=== PATIENT | female | born 1970 | race Asian ===

== ENCOUNTER 2024-11-13 13:23 | Outpatient (REF) | payer MEDICAID, SELFPAY ==
[2024-11-13 16:07] LABS: MANUAL DIFF FLAG NO
[2024-11-13 16:42] LABS: Basophils Absolute Auto 0.1 X10*3/uL (0.0-0.2); Basophils Percent Auto 0.5 % (0-2); Eosinophils Percent Auto 0.4 % (0-4); Hematocrit 42.7 % (37.0-47.0); Hemoglobin 14.5 g/dl (12.0-16.0); Imm Gran Abs Auto 0.03 X10*3/uL (0.00-0.03); Imm Gran Pct Auto 0.3 % (0.0-0.4); Lymphocytes Absolute Auto 3.7 X10*3/uL (1.2-4.9); Lymphocytes Percent Auto 37.3 % (20-40); Mean Corpuscular Hemoglobin 31.7 pg (27.0-33.0); Mean Corpuscular Volume 93.4 fL (80.0-98.0); Mean Platelet Volume 9.1 fL (9.4-12.3); Monocytes Absolute Auto 0.4 X10*3/uL (0.1-1.2); Monocytes Percent Auto 4.1 % (2-11); Neutrophils Absolute Auto 5.6 x10*3/uL (2.0-8.3); Neutrophils Percent Auto 57.4 % (45-73); Platelet Count 387 X10*3/uL (160-400); Red Blood Count 4.57 X10*6/uL (4.20-5.50); Red Cell Distribution Width 12.6 % (11.0-16.0); White Blood Count 9.8 X10*3/uL (4.8-10.8)
[2024-11-13 16:47] LABS: Anion Gap 12 (12-20); Blood Urea Nitrogen 11 mg/dL (9-16); Calcium 9.6 mg/dL (8.4-10.2); Carbon Dioxide 25 mmol/L (22-29); Chloride 107 mmol/L (96-108); Cholesterol 210 mg/dL (<200); Estimated Glomerular Filt Rate > 60; Glucose Random 89 mg/dL (60-115); HDL Cholesterol 67 mg/dL (>40); LDL Cholesterol Calculated 129 mg/dL (<100); Potassium 3.8 mmol/L (3.3-5.1); Sodium 140 mmol/L (135-145); Triglycerides 73 mg/dL (<150)
--- OUTSIDE RECORDS SUMMARY | 2024-11-13 16:55 | XMS_ITS | Encounter Summary ---
Author Organization [email or web address] Address [address] [facility] [address] [place] [address] Care Team Providers Care Informatics Manager Name Role Phone Unavailable Primary Care Provider Unavailabl e Encounter Details Date Type Department Care Team (Latest Contact Info) Description 10/23/2024 Travel Social History Tobacco Use Types Packs/Day Years Used Date Smoking Tobacco: Never Assessed Housing Stability Answer Date Recorded What is your housing situation today? I have jin segundo 10/16/[address] you li ve. Do you have problems with any of the following? None of the above 10/16/2024 Food Insecurity Answer Date Recorded Within the past 12 months, y ou worried that your food would run out before you got money to buy more: Never True 10/16/2024 Within the past 12 months,th e food you bought just didn't last and you didn't have enough money to get more: Never True 12/2024 Transportation Answer Date Recorded In the past 12 months, has l ack of transportation kept you from medical appts, meetings, work or from getting things needed for daily living? No 10/16/2024 Utilities Answer Date Recorded In the past 12 months, has t he electric, gas, oil or water company threatened to shut off services in your home? No 10/16/2024 Internet Access Answer Date Recorded Internet Access Q1 Yes 10/16/2024 Internet Access Q2 Not on file 10/16/2024 Comments Unknown Sex and Gender Information Value Date Recorded Sex Assigned at Female 08/03/2024 11:02 AM EST Legal Sex Female 1:45 PM EST Gender Identity Female 08/03/2024 11:02 AM EST Sexual Orientation Straight 08/03/2024 11 :02 AM EST documented as of this encounter Plan of Treatment Not on file documented as of this encounter Visit Diagnoses Not on filedocumented in this encounter
--- OUTSIDE RECORDS SUMMARY | 2024-11-13 16:55 | XMS_ITS | Encounter Summary ---
Author Organization [employer] Address [address] [facility] [address] [place] [address] Care Team Providers Care Waste Specialist Name Role Phone ShantradhasairaJaspalKenzie [employer]ER Primary Care Provider [phone] Encounter Details Date Type Department Care Team (Late st Contact Info) Description 10/26/2024 2:15 PM EST Office Visit [facility] [address] [place] [address] Kenzie Ding FNP [address] [place] [address] Well adult health check (Primary Dx); Radha-menopausal; Dietary counseling; Exercise counseling Social History Tobacco Use Types Packs/Day Years Used Date Smoking Tobacco: Never Smokeless Tobacco: Never Tobacco Cessation:Counseling Given: Not Answered Depression Answer Date Recorded Patient Health Questionnaire-9 Score 10 10/26/2024 Patient Health Questionnaire-9 Score 10 10/26/2024 Last PHQ-9: Questionnaire Data Not on file 0 10/26/2024 Housing Stability Answer Date Recorded What is [...] off services in your home? No 10/16/2024 Depression Answer Date Recorded Patient Health Questionnaire-2 Score 2 10/26/2024 Internet Access Answer Date Recorded Internet Access Q1 Yes 10/16/2024 Internet Access Q2 Not on file 10/16/2024 Comments Unknown Sex and Gender Information Value Date Recorded Sex Assigned at Female 08/03/2024 11:02 AM EST Legal Sex Female 1:45 PM EST Gender Identity Female 08/03/2024 11:02 AM EST Sexual Orientation Straight 08/03/2024 11 :02 AM EST documented as of this encounter Last Filed Vital Signs Vital Sign Reading Time Taken Comments Blood Pressure 122/96 10/26/2024 2:06 PM EST Pulse 64 10/26/2024 2:06 PM EST Temperature 37.1 ??C (98.8 ??F) 10/26/2024 2:06 PM ES T Respiratory Rate 20 10/26/2024 2:06 PM EST Oxygen Saturation - - Inhaled Oxygen Concentration - - Weight 84 kg (185 lb 2 oz) 10/26/2024 2:06 PM ES T Height 168.4 cm (5' 6.29 ) 10/26/2024 2:06 PM ES T Body Mass Index 29.62 10/26/2024 2:06 PM EST documented in this encounter Progress Notes * MISTI Beal - 10/26/2024 2:15 PM EST Subjective: Lauren Martinez is a 54 y.o. female who presents to the office for a new patient visit. Previous PCP [place]. Interim History: 08/03/2024 seen in [facility] for refill of Loestrin-Fe . Reported she has been taking them for 9 months for perimenopausal symptoms by [facility]. Reports frequent spotting every 2 weeks. Previous work ups have been negative. Patient is to transfer health information Current concerns: Itchy nipple using clobetasol cream. Request for hormone for menopausal Patient Active Problem List Diagnosis Radha-menopausal Exercise counseling Well adult health check Dietary counseling History reviewed. No pertinent surgical history. Family History Problem Relation Name Age of Onset Hypertension Mother Kidney cancer Father Hypertension Sister Heart attack Brother qt 49 yrs from heart attack Social History Living situation: Lives with boyfriend in an apartment Safety:No fire arms in the home. 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 Reports home and environment safe Employment/Education: unemployed Diet/exercise: Eats variety of food including fruits and vegetables. Routine exercise Substance use: Denies use of tobacco, alcohol or drugs Sexual preference Male Sexual activity: Yes, same partner x 4 yrs Dental: [facility] Last menstrual period: LMP 09/24/2024. Radha pelon pausal. Patient reports been on Lo Loestin pills for radha menopausal x 1 yr Children: None. [id number] Mental health: Denies SI, harming self or others Allergies Allergen Reactions Hazelnut (Filbert) Angioedema Penicillin V Hives Current Outpatient Medications Medication Sig Dispense Refill norethindrone-ethinyl estradiol-iron (Lo Loestrin Fe) 1 MG-10 MCG / 10 MCG tablet Take 1 tablet by mouth Once per day. 84 tablet 0 No current facility-administered medications for this visit. Health Maintenance Topic Date Due HIV Screening Never done Colorectal Cancer Screening Never done Alcohol/Substance Use Screening Never done Hepatitis C Screening Never done DTaP/Tdap/Td Vaccines (1 - Tdap) Never done Hepatitis B Vaccines (1 of 3 - 19+ 3-dose series) Never done Cervical Cancer Screening Never done Mammogram Never done Pneumococcal Vaccine: 50+ Years (1 of 1 - PCV) Never done Zoster Vaccines (1 of 2) Never done Depression Monitoring (PHQ-9) 04/25/2025 Depression Screening 10/26/2025 Tobacco Screening 10/26/2025 SDOH Screening 10/26/2025 RSV Patients and Patients Aged 60 years or older (1 - 1-dose 75+ series) 2046 Influenza Vaccine Completed COVID-19 Vaccine Completed RSV under 20 months Aged Out HIB Vaccines Aged Out IPV Vaccines Aged Out Hepatitis A Vaccines Aged Out Meningococcal Vaccine Aged Out Rotavirus Vaccines Aged Out HPV Vaccines Aged Out Review of Systems Constitutional: Negative for appetite change and fever. HENT: Negative for congestion, ear discharge, ear pain, rhinorrhea and sore throat. Eyes: Negative for discharge, redness and itching. Respiratory: Negative for cough, shortness of breath and wheezing. Cardiovascular: Negative for chest pain. Gastrointestinal: Negative for abdominal pain, blood in stool, constipation, diarrhea, nausea and vomiting. Endocrine: Negative for polydipsia and polyuria. Genitourinary: Negative for difficulty urinating, dyspareunia, hematuria and menstrual problem. Musculoskeletal: Negative for arthralgias. Skin: Negative for rash. Neurological: Negative for dizziness, weakness and headaches. Hematological: Does not bruise/bleed easily. Psychiatric/Behavioral: Negative for behavioral problems, sleep disturbance and suicidal ideas. Vitals: 10/26/24 1406 BP: (!) 122/96 BP Location: Right arm Patient Position: Sitting BP Cuff Size: Adult Pulse: 64 Resp: 20 Temp: 98.8 ??F (37.1 ??C) TempSrc: Oral Weight: 185 lb 2 oz (84 kg) Height: 5' 6.29 (1.684 m) Physical Exam Constitutional: Appearance: Normal appearance. HENT: Head: Normocephalic and atraumatic. Right Ear: Tympanic membrane, ear canal and external ear normal. Left Ear: Tympanic membrane, ear canal and external ear normal. Nose: Nose normal. No congestion. Mouth/Throat: Mouth: Mucous membranes are moist. Pharynx: Oropharynx is clear. Eyes: Extraocular Movements: Extraocular movements intact. Pupils: Pupils are equal, round, and reactive to light. Cardiovascular: Rate and Rhythm: Normal rate and regular rhythm. Pulses: Normal pulses. Heart sounds: Normal heart sounds. No murmur heard. Pulmonary: Effort: Pulmonary effort is normal. Breath sounds: Normal breath sounds. No wheezing. Chest: Chest wall: No tenderness. Abdominal: General: Abdomen is flat. Bowel sounds are normal. Palpations: Abdomen is soft. Tenderness: There is no guarding or rebound. Musculoskeletal: General: Normal range of motion. Cervical back: Normal range of motion. Right lower leg: No edema. Left lower leg: No edema. Skin: General: Skin is warm and dry. Capillary Refill: Capillary refill takes 2 to 3 seconds. Findings: No bruising. Neurological: General: No focal deficit present. Mental Status: She is alert and oriented to person, place, and time. Cranial Nerves: No cranial nerve deficit. Sensory: No sensory deficit. Psychiatric: Mood and Affect: Mood normal. Behavior: Behavior normal. Thought Content: Thought content normal. Judgment: Judgment normal. Problem List Items Addressed This Visit Well adult health check - Primary Well nourished, alert and cooperative , good historian, and answering questions appropriately. Denies significant past medical and surgical history. Reports having various symptoms of radha [place] was placed on Loestrin-Fe by [facility]. Reported she has been taking them for 9 months. Discussed with patient the need and importance of signing the form to obtain health information from previous provider. Patient requesting for hormone testing for the state of her perimenopause. Plan Blood work order to screen for anemia, electrolytes, elevated blood sugar and lipid Lab ordered evaluate thyroid function and menopausal state Ordered preventing screening for STIs Diet and exercise review Hep B lab work to determine presence of antigens or antibody Lifestyle and behavioral health assessment Patient due pneumococcal, Dtap, and shingles offered declined at this time Patient education on vaccination and importance getting annual vaccines Mammogram: Last manmogram 01/2024 reports was normal. Next pap smear 01/2029 Pap smear: Reports up to date and unremarkable Colonoscopy: 07/2023 reports normal. Next colonoscopy 07/2033 Follow up with lab results accordingly Relevant Orders CBC auto differential Lipid Panel, Standard Chlamydia/N. Gonorrhoeae RNA, TMA, Urogenitial Basic Metabolic Panel Hemoglobin A1c Radha-menopausal Patient concern about perimenopausal symptoms requesting for hormone level check. Currently on Loestrin-Fe prescribed by [facility]. Last refill in [facility] on 08/03/2024. Reports Itchy nippleas part of symptoms and using clobetasol cream with good effect. Denies discharge, mass, peeling skin, change of color or irritation. Patient teaching - itchy nipple can r/t ezema, contact dermatitisand others. Advised to report back if it gets worse . Plan on menopausal lab work Relevant Orders TSH W/Reflex to FT4 FSH Prolactin, Dilution Study Ferritin Dietary & Exercise counseling Eat 3 meals a day, especially breakfast Eat healthy and focus on healthyfood choices daily fruits, vegetables, grains, low fat milk, low carbohydrate and fat Maintain healthy weight as this will lower your risk for many health problems. Be physically active at least 45 minutes a day [facility] OPERATING ROOM ASSISTANT Attestation OPERATING ROOM ASSISTANT Resident Attestation: Patient was seen and evaluated by Kenzie CHAPPELL , in collaboration with Krysten CHAPPELL who hasreviewed my assessment and plan. I, Krysten CHAPPELL, have reviewed the resident's note and agree with the assessment & plan of care as documented above. documented in this encounter Plan of Treatment Pending Results Name Type Priority Associated Diagnoses Date /Time Lipid Panel, Standard Lab Routine Well adult health check 11/13/2024 1:32 PM EST Basic Metabolic Panel Lab Routine Well adult health check 11/13/2024 1:32 PM EST Scheduled Orders Name Type Priority Associated Diagnoses Orde r Schedule Chlamydia/N. Gonorrhoeae RNA, TMA, Urogenitial Microbiology Routine Well adult health check Ordered: 10/28/2024 TSH W/Reflex to FT4 Lab Routine Radha-menopausal Expected: 10/28/2024 (Approximate), Expires: 10/28/2025 FSH Lab Routine Radha-menopausal Expected: 10/28/2024, Expires: 10/28/2025 Prolactin, Dilution Study Lab Routine Radha-menopausal Expected: 10/28/2024 (Approximate), Expires: 10/28/2025 Hemoglobin A1c Lab Routine Well adult health check Expected: 11/01/2024 (Approximate), Expires: 10/26/2025 Ferritin Lab Routine Radha-menopausal Expected: 11/01/2024 (Approximate), Expires: 10/26/2025 Hepatitis A,B,C Profile Lab Routine Well adult health check Expected: 11/01/2024, Expires: 11/01/2025 documented as of this encounter Procedures Procedure Name Priority Date/Time Associated Diagnosis Comments CBC WITH AUTO DIFFERENTIAL Routine 11/13/2024 1:32 PM EST Well adult health check LIPID PANEL, STANDARD Routine 11/13/2024 1:32 PM EST Well adult health check BASIC METABOLIC PANEL Routine 11/13/2024 1:32 PM EST Well adult health check documented in this encounter Results * (ABNORMAL) CBC auto differential (11/13/2024 1:32 PM EST) White Blood Count 9.8 4.8 - 10.8 X10*3/uL [facility] Red Blood Count 4.57 4.20 - 5.50 X10*6/uL [facility] Hemoglobin 14.5 12.0 - 16.0 g/dl [facility] Hematocrit 42.7 37.0 - 47.0 % [facility] Mean Corpuscular Volume 93.4 80.0 - 98.0 fL [facility] Mean Corpuscular Hemoglobin 31.7 27.0 - 33.0 pg [facility] Mean Corpuscular HGB Conc 34.0 31.0 - 35.0 g/dl [facility] Red Cell Distribution Width 12.6 11.0 - 16.0 % [facility] Platelet Count 387 160 - 400 X10*3/uL [facility] Mean Platelet Volume 9.1(L) 9.4 - 12.3 fL [facility] Neutrophils Percent Auto 57.4 45 - 73 % [facility] Imm Gran Pct Auto 0.3 0.0 - 0.4 % [facility] Lymphocytes Percent Auto 37.3 20 - 40 % [facility] Monocytes Percent Auto 4.1 2 - 11 % [facility] Eosinophils Percent Auto 0.4 0 - 4 % [facility] Basophils Percent Auto 0.5 0 - 2 % [facility] NRBC Pct Auto 0.0 0.0 - 0.2 /100WBC [facility] Neutrophils Absolute Auto 5.6 2.0 - 8.3 x10*3/uL [facility] Imm Gran Abs Auto 0.03 0.00 - 0.03 X10*3/uL [facility] Lymphocytes Absolute Auto 3.7 1.2 - 4.9 X10*3/uL [facility] Monocytes Absolute Auto 0.4 0.1 - 1.2 X10*3/uL [facility] Eosinophils Absolute Auto 0.0 0.0 - 0.4 X10*3/uL [facility] Basophils Absolute Auto 0.1 0.0 - 0.2 X10*3/uL [facility] NRBC Abs Auto 0.000 0.0 - 0.012 X10*3/uL [facility] Blood Venous blood specimen / Unknown 11/13/2024 1:32 PM EST 11/13/2024 4:05 PM EST Kenzie CHAPPELL LAB BLOOD ORDERABLES Final Res ult [facility] [address] [place] [phone] [phone] documented in this encounter Visit Diagnoses Diagnosis Well adult health check- Primary Unspecified general medical examination Radha-menopausal Symptomatic menopausal or female climacteric states Dietary counseling Dietary surveillance and counseling Exercise counseling documented in this encounter Additional Health Concerns Assessment Noted Time PHQ-9 Depression Total Score: 10 025 2:23 PM EST documented as of this encounter Care Teams Waste Specialist Relationship Specialty Start Date End Date Kenzie Ding FNP [address] [place] [phone] PCP - General Family Medicine 10/26/24 documented as of this encounter
--- OUTSIDE RECORDS SUMMARY | 2024-11-13 16:55 | XMS_ITS | Clinical Summary ---
Author Organization [employer] Address [address] [place] [address] 7 [place] [address] Care Team Providers Care Community Health Consultant Name Role Phone Kenzie Ding Primary Care Provider [phone] Allergies Active Allergy Reactions Criticality Noted Date Comments Hazelnut (Filbert) Angioedema 10/26/2024 Penicillin V Hives 08/03/2024 Medications norethindrone-et hinyl estradiol-iron (Lo Loestrin Fe) 1 MG-10 MCG / 10 MCG tabletIndication s:Perimenopausal symptoms Take 1 tablet by mouth Once per day. 84 tablet 08/03/2024 Active Active Problems Problem Noted Date Diagnosed Date Exercise counseling 11/01/2024 Well adult health check 11/01/2024 Dietary counseling 11/01/2024 Radha-menopausal 05/13/2022 Overview (10/23/2024): Various ailments and symptoms Encounters Date Type Department Care Team Description 10/26/2024 2:15 PM EST Office Visit [facility] [address] [place] [phone] Kenzie Ding FNP Well adult health check (Primary Dx); Radha-menopausal; Dietary counseling; Exercise counseling 10/23/[address] [address] Sosa Bean [place] Chart Prep 10/23/2024 Travel 10/16/2024 Patient Outreach [facility] [address] [place] [phone] Kenzie Ding FNP Pre-visit Planning (SDOH screening negative and Tobacco screening negative) from Last 3 Months Immunizations Name Administration Dates Next Due Influenza, seasonal, injectable, preservative fr ee 08/03/2024 Pfizer Covid-19 Vaccine 12+ 08/03/2024 Family History Medical History Relation Name Comments Heart attack Brother qt 49 yrs from heart attack Kidney cancer Father Hypertension Mother Hypertension Sister Relation Name Status Comments Brother Father Mother Sister Social History Tobacco Use Types Packs/Day Years [...] Orientation Straight 08/03/2024 11 :02 AM EST Last Filed Vital Signs Vital Sign Reading Time Taken Comments Blood Pressure 122/96 10/26/2024 2:06 PM EST Pulse 64 10/26/2024 2:06 PM EST Temperature 37.1 ??C (98.8 ??F) 10/26/2024 2:06 PM ES T Respiratory Rate 20 10/26/2024 2:06 PM EST Oxygen Saturation 99% 08/03/2024 11:14 AM EST Inhaled Oxygen Concentration - - Weight 84 kg (185 lb 2 oz) 10/26/2024 2:06 PM ES T Height 168.4 cm (5' 6.29 ) 10/26/2024 2:06 PM ES T Body Mass Index 29.62 10/26/2024 2:06 PM EST Plan of Treatment Health Maintenance Due Date Last Done Comments CT Colonography 1971 Colonoscopy 1971 Colorectal Cancer Screening 1971 FIT DNA/Cologuard 1971 FIT 1971 FOBT 1971 HIV Screening 1971 Sigmoidoscopy 1971 Alcohol/Substance Use Screening 1983 Hepatitis C Screening 1989 DTaP/Tdap/Td Vaccines (1 - Tdap) 1990 Hepatitis B Vaccines (1 of 3 - 19+ 3-dose series) 1990 Pap Smear 02/29/1992 Cervical Cancer Screening 2001 HPV/Cotest 2001 Mammogram 2011 Pneumococcal Vaccine: 50+ Years (1 of 1 - PCV) 2021 Zoster Vaccines (1 of 2) 2021 Depression Monitoring (PHQ-9) 04/25/2025, 10/26/2024 Depression Screening 10/26/2025 10/26/2024, 10/26/2024 SDOH Screening 10/26/2025 10/26/2024 Tobacco Screening 10/26/2025 10/26/2024 RSV Patients and Patients Aged 60 years or older (1 - 1-dose 75+ series) 2046 COVID-19 Vaccine Completed 08/03/2024 Influenza Vaccine Completed 08/03/2024 HIB Vaccines Aged Out No longer eligi ble based on patient's age to complete this topic HPV Vaccines Aged Out No longer eligi ble based on patient's age to complete this topic Hepatitis A Vaccines Aged Out No long er eligible based on patient's age to complete this topic IPV Vaccines Aged Out No longer eligi ble based on patient's age to complete this topic Meningococcal Vaccine Aged Out No radha otto eligible based on patient's age to complete this topic RSV under 20 months Aged Out No longe r eligible based on patient's age to complete this topic Rotavirus Vaccines Aged Out No longer eligible based on patient's age to complete this topic Procedures Procedure Name Priority Date/Time Associated Diagnosis Comments BASIC METABOLIC PANEL Routine 11/13/2024 1:32 PM EST Well adult health check LIPID PANEL, STANDARD Routine 11/13/2024 1:32 PM EST Well adult health check CBC WITH AUTO DIFFERENTIAL Routine 11/13/2024 1:32 PM EST Well adult health check from Last 3 Months Results * (ABNORMAL) CBC auto differential (11/13/2024 1:32 PM EST) White Blood Count 9.8 4.8 - 10.8 X10*3/uL [facility] Red Blood Count 4.57 4.20 - 5.50 X10*6/uL [facility] Hemoglobin 14.5 12.0 - 16.0 g/dl [facility] Hematocrit 42.7 37.0 - 47.0 % [facility] Mean Corpuscular Volume 93.4 80.0 - 98.0 fL [facility] Mean Corpuscular Hemoglobin 31.7 27.0 - 33.0 pg [facility] Mean Corpuscular HGB Conc 34.0 31.0 - 35.0 g/dl [facility] Red Cell Distribution Width 12.6 11.0 - 16.0 % [facility] Platelet Count 387 160 - 400 X10*3/uL [facility] Mean Platelet Volume 9.1(L) 9.4 - 12.3 fL [facility] Neutrophils Percent Auto 57.4 45 - 73 % [facility] Imm Gran Pct Auto 0.3 0.0 - 0.4 % [facility] Lymphocytes Percent Auto 37.3 20 - 40 % [facility] Monocytes Percent Auto 4.1 2 - 11 % [facility] Eosinophils Percent Auto 0.4 0 - 4 % [facility] Basophils Percent Auto 0.5 0 - 2 % [facility] NRBC Pct Auto 0.0 0.0 - 0.2 /100WBC [facility] Neutrophils Absolute Auto 5.6 2.0 - 8.3 x10*3/uL [facility] Imm Gran Abs Auto 0.03 0.00 - 0.03 X10*3/uL [facility] Lymphocytes Absolute Auto 3.7 1.2 - 4.9 X10*3/uL [facility] Monocytes Absolute Auto 0.4 0.1 - 1.2 X10*3/uL [facility] Eosinophils Absolute Auto 0.0 0.0 - 0.4 X10*3/uL [facility] Basophils Absolute Auto 0.1 0.0 - 0.2 X10*3/uL [facility] NRBC Abs Auto 0.000 0.0 - 0.012 X10*3/uL [facility] Blood Venous blood specimen / Unknown 11/13/2024 1:32 PM EST 11/13/2024 4:05 PM EST Kenzie CHAPPELL LAB BLOOD ORDERABLES Final Res ult [facility] [address] [place] [phone] [phone] from Last 3 Months Insurance [facility] C3 Care Teams Community Health Consultant Relationship Specialty Start Date End Date Kenzie Ding FNP [address] [place] [phone] PCP - General Family Medicine 10/26/24
--- OUTSIDE RECORDS SUMMARY | 2024-11-13 16:55 | XMS_ITS | Encounter Summary ---
Author Organization [employer] Address [address] [facility] [address]t [place] [address] Care Team Providers Care Manager Pet Name Role Phone Unavailable Primary Care Provider Unavailabl e Reason for Visit * Reason Onset Date Comments Chart Prep 10/23/2024 Encounter Details Date Type Department Care Team (Late st Contact Info) Description 10/23/2024 Telephone [facility] [address] [place] [address] Sosa Bean [place] Chart Prep Social History Tobacco Use Types Packs/Day Years [...] AM EST documented as of this encounter Miscellaneous Notes * Telephone Encounter - Sosa Bean MA - 10/23/2024 10:39 AM EST Chart Prep Labs: not applicable Images: not applicable Vaccines due: Tdap, Hep B, PCV20, Shingles Referrals: none Screenings: colonoscopy , mammogram , HIV, Hep C, Cervical cancer Overdue care gaps: Sbirt, SDOH, PHQ-9, Oral Health documented in this encounter Plan of Treatment Not on file documented as of this encounter Visit Diagnoses Not on filedocumented in this encounter
--- OUTSIDE RECORDS SUMMARY | 2024-11-13 16:55 | XMS_ITS | Encounter Summary ---
Author Organization [employer] Address [address] [facility] 7t [place] [address] Care Team Providers Care Digital Media Designer Name Role Phone Unavailable Primary Care Provider Unavailabl e Reason for Visit * Reason Comments Pre-visit Planning SDOH screening negat beau and Tobacco screening negative Encounter Details Date Type Department Care Team ([facility] st Contact Info) Description 10/16/2024 Patient Outreach [facility] [address] [place] [address] Kenzie Ding FNP [address] [place] [address] Pre-visit Planning (SDOH screening negative and Tobacco screening negative) Social History Tobacco Use Types Packs/Day Years [...] AM EST documented as of this encounter Progress Notes * Morris Barrow - 10/16/2024 2:24 PM EST CC Morris davison successful outbound call to patient for pre-visit planning. Patient name and confirmed. Patient confirms appt date and time, and has transportation arrangements. Biggest concern for appointment at this time is no concerns. Patient advised to bring to appointment a photo id and insurance card. Appropriate screenings completed in anticipation of appointment. documented in this encounter Plan of Treatment Not on file documented as of this encounter Visit Diagnoses Not on filedocumented in this encounter
[2024-11-13 16:56] LABS: Estimated Average Glucose 103 mg/dL; Hemoglobin A1C 128.5004 umol/L; Hemoglobin A1c % 5.2 % (<6.0); Total Hemoglobin (HGBA1C) 3852.6439 umol/L
[2024-11-13 17:01] LABS: Ferritin 75 ng/mL (10-250); TSH reflex Free T4 1.05 uIU/mL (0.32-4.0)
[2024-11-14 08:39] LABS: HBS Num1 0.31 mIU/mL (0-7.99); HBc Num1 0.06 S/CO (0.00-0.79); HBsAGNum1 0.28 S/CO (0.00-0.99); Hepatitis A Antibody IgM 0.14 Index (0-0.79); Hepatitis B Core Antibody Nonreactive (Nonreactive); Hepatitis B Surface Antigen Negative (Negative); ~HepC Num1 0.09 S/CO (0.00-0.79); ~Hepatitis A Antibody IgM Nonreactive (Nonreactive); ~Hepatitis B Surface Antibody NONREACTIVE (Nonreactive); ~Hepatitis C Antibody Nonreactive (Nonreactive)
[2024-11-14 12:30] LABS: CT PCR NOT DETECTED (Not Detect.); NG PCR NOT DETECTED (Not Detect.)
[2024-11-14 23:39] LABS: Follicle Stimulating Hormone 28.2 mIU/mL; Prolactin Undiluted 5.5 ng/mL
== END 2024-11-13 13:24 | disposition home or self-care (01) ==
LOC: HO.HHCL 13:23
PROVIDERS: Visit Provider Nurse Practitioner Family
DX: Z00.00 Encounter for general adult medical examination without abnormal findings (principal); N95.1 Menopausal and female climacteric states
CPT/HCPCS: 80048; 80061; 82728; 83001; 83036; 84146; 84443; 85025; 86704; 86706; 86709; 86803; 87340; 87491; 87591

== ENCOUNTER 2025-02-14 15:50 | Outpatient (REF) | payer MEDICAID, SELFPAY ==
--- NOTE | ~2025-02-14 | US_ITS ---
EXAMINATION: US PELVIS CLINICAL INFORMATION: Abnormal uterine bleeding COMPARISON: None available. TECHNIQUE: Ultrasound of the pelvis is performed using both transabdominal and transvaginal transducers along with Doppler. Transvaginal imaging is performed due to inadequate visualization transabdominally. FINDINGS: Uterus: The uterus is anteverted and measures 9.0 x 3.9 x 7.4 cm. There are circumscribed heterogeneous regions within the uterus. In the left body, there is a subserosal mass measuring 3.8 x 2.6 x 4.0 cm. The central fundus, there is a heterogeneous region measuring 1.7 x 1.6 x 1.8 cm involving the myometrium and subserosal. Heterogeneity in the right mid body myometrial measuring up to 2 cm is consistent with a fibroid or multiple small fibroids. Within the cervical canal, near junction with uterus, there is a 1.0 x 0.2 x 0.4 cm hyperechogenic area consistent with polyp. There is central blood flow on color Doppler. There is a small amount of fluid in the endocervical canal. There is trace free fluid. The double wall endometrial thickness is 4 mm. The uterus is smooth in contour and has normal myometrial echogenicity. No visible fibroid. Adnexa: Both ovaries are visualized. There is normal color flow to the adnexa. There is no ovarian torsion. Right ovary measures 1.2 x 0.5 x 1.0 cm. Left ovary measures 2.1 x 1.7 x 2.3 cm cm. There is a cyst or follicle that measures 17 mm long axis. US/US pelvic and transvaginal IMPRESSION: Endocervical canal polyp measuring 1.0 x 2.2 x 0.4 cm. Neoplasm not ruled out. Fibroid uterus. Electronically signed by: Quincy Vera MD 02/14/2025 04:45 PM EDT
--- OUTSIDE RECORDS SUMMARY | 2025-02-14 18:06 | XMS_ITS | Encounter Summary ---
Author Organization [employer] Address [address] [facility] 7t [place] [address] Care Team Providers Care Timber Feller Name Role Phone Kenzie Ding [facility] Primary Care Provider [phone] Reason for Visit * Reason Onset Date Comments Med Refill 12/03/2024 Encounter Details Date Type Department Care Team ([facility] st Contact Info) Description 12/03/2024 Refill [facility] [address] [place] [address] Jevon Esqueda MD [address] [place] [address] Perimenopausal symptoms Social History Tobacco Use Types Packs/Day Years Used Date Smoking Tobacco: Never Smokeless Tobacco: Never Depression Answer Date Recorded Patient Health Questionnaire-9 [...] t he electric, gas, oil or water [employer] threatened to shut off services in your [...] documented as of this encounter Visit Diagnoses Diagnosis Perimenopausal symptoms documented in this encounter Additional Health Concerns Assessment Noted Time PHQ-9 Depression Total Score: 10 025 2:23 PM EST documented as of this encounter Care Teams Timber Feller Relationship Specialty Start Date End Date Kenzie Ding FNP [address] [place] [address] PCP - General Family Medicine 10/26/24 documented as of this encounter
== END 2025-02-14 15:51 | disposition home or self-care (01) ==
LOC: HO.US 15:50
PROVIDERS: Visit Provider Advanced Practice Midwife
DX: N93.9 Abnormal uterine and vaginal bleeding, unspecified (principal)
CPT/HCPCS: 76830; 76856

== ENCOUNTER → 2025-02-14 15:52 | Outpatient (BNV) | payer MEDICAID, SELFPAY | PROVIDERS: Visit Provider Radiology Diagnostic Radiology | DX: N84.1 Polyp of cervix uteri (principal); D25.9 Leiomyoma of uterus, unspecified | CPT/HCPCS: 76830; 76856 ==

== ENCOUNTER 2025-06-10 08:27 | Outpatient (REF) | payer MEDICAID, SELFPAY | END 2025-06-10 08:28 | disposition home or self-care (01) | LOC: HO.LNP 08:27 | PROVIDERS: Visit Provider Obstetrics & Gynecology | DX: N95.0 Postmenopausal bleeding (principal); D25.9 Leiomyoma of uterus, unspecified; Z32.02 Encounter for pregnancy test, result negative | CPT/HCPCS: 81025; 87626; 88175; 99202 ==

== ENCOUNTER 2025-06-10 08:27 | Outpatient (AMB) | payer MEDICAID, SELFPAY ==
--- NOTE | 2025-06-10 08:37 | MHC.OFFVIS ---
Vital Signs 06/10/25 08:43 Height 5 ft 7 in Weight 180 lb BMI 28.2 BP 110/78 Intake Visit Reasons: AUB /External Referral Construction Assistant Required: No Information Interpreted: non-clinical & clinical Electric Meter Tester: Electric Meter Tester Present (Conchita LAZO) Accompanied by: Self / Same As Patient Allergies Penicillins Allergy (Intermediate, Verified 06/10/25 08:44) Rash Is last menstrual period known: Yes Last menstrual period: 05/15/25 Post menopausal: No Patient : No Do you need a note to return to daycare/school/sports/work: Yes (for surgery on tuesday) HPI Comments Details: Presenting referred from [facility] after 2 episodes of vaginal bleeding after 9 months of amenorrhea. 03/06 pelvic ultrasound showed the following: Uterus: The uterus is anteverted and measures 9.0 x 3.9 x 7.4 cm. There are circumscribed heterogeneous regions within the uterus. In the left body, there is a subserosal mass measuring 3.8 x 2.6 x 4.0 cm. The central fundus, there is a heterogeneous region measuring 1.7 x 1.6 x 1.8 cm involving the myometrium and subserosal. Heterogeneity in the right mid body myometrial measuring up to 2 cm is consistent with a fibroid or multiple small fibroids. Within the cervical canal, near junction with uterus, there is a 1.0 x 0.2 x 0.4 cm hyperechogenic area consistent with polyp. There is central blood flow on color Doppler. There is a small amount of fluid in the endocervical canal. There is trace free fluid. The double wall endometrial thickness is 4 mm. The uterus is smooth in contour and has normal myometrial echogenicity. No visible fibroid. Adnexa: Both ovaries are visualized. There is normal color flow to the adnexa. There is no ovarian torsion. Right ovary measures 1.2 x 0.5 x 1.0 cm. Left ovary measures 2.1 x 1.7 x 2.3 cm cm. There is a cyst or follicle that measures 17 mm long axis. 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 Patient Tobacco Use Status: Never used Tobacco Current occupational status: unemployed Gender identity: Female Female Reproductive History Menstrual Age of Menarche: 14 Duration of menses: 3-5 days Date of last menstrual period: 05/15/25 Total pregnancies: 2 Full term: 2 Review of Systems Card Reports as per HPI and Reports no additional complaints Resp Reports as per HPI and Reports no additional complaints GI Reports as per HPI and Reports no additional complaints Reports as per HPI Physical Exam Vital Signs: Last Vital Signs BP 110/78 06/10/25 08:43 BMI result Body Mass Index 28.2 Const General: cooperative, healthy appearing and comfortable Chest Chest palpation & inspection: normal inspection of the chest and normal palpation of entire chest wall Breast/axilla inspection: normal inspection of the breasts and normal inspection of the axillae Breast/axilla palpation: normal palpation of the breasts, normal palpation of the axillae and no axillary lymphadenopathy Resp Effort & Inspection: normal respiratory effort Auscultation: clear to auscultation bilaterally Percussion: percussion normal Cardio Palpation: normal PMI Rate: regular rate Rhythm: regular rhythm Heart sounds: no murmurs and no rubs Peripheral pulses: Peripheral pulses 2+ throughout GI Inspection: Yes normal to inspection Palpation (GI): Soft to palpation, nontender, no guarding, not rigid and No hepatosplenomegaly present Percussion: Yes normal to percussion Auscultation: normal bowel sounds Rectal Exam - Female: deferred Results AMB Test Urine AMB Test Urine Negative Last Edit by Conchita Francis CMA on 06/10/25 08:55 Results Reviewed Results Reviewed: Laboratory Last Values Tst Clinic Negative 06/10/25 08:54 Assessment & Plan Assessment & Plan (1) Postmenopausal bleeding: Comment: Endocervical polyp by ultrasound Code(s): N95.0 - Postmenopausal bleeding Category: Medical Plan: Co testing and screening mammogram done. Discussed with the patient the differential diagnosis of postmenopausal bleeding including but not limited to endometrial/endocervical hyperplasia and/or malignancy or polyp. In addition discussed with the patient the pelvic ultrasound findings, showing endocervical polyp. The negative predictive value, positive predictive value, Sensitivity, specificity of using ultrasound measurement of endometrial stripe to detecting endometrial pathology including hyperplasia , polyp or cancer were discussed with the patient. Recommended to the patient that the next step is hysteroscopy D&C possible polypectomy . Discussed with the patient the procedure , all benefits and risks including but not limited to inability to complete the procedure , insufficient endometrial tissue for a complete evaluation of the endometrial cavity , bleeding, infection, possible need for blood transfusion with all its risk ( HIV,syphilis, Hepatitis, anaphylaxis shock, others..), injury to bladder, rectum, possible need for laparoscopy/laparotomy or hysterectomy. The patient verbalized understanding and signed the consent. Instructions given the patient to stay NPO after midnight the day prior to the procedure and to take only the specific medication (s) discussed the morning of the surgical procedure and to schedule a 2 week postoperative appointment (2) Uterine myoma: Code(s): D25.9 - Leiomyoma of uterus, unspecified Category: Medical Plan: Discussed with the patient the findings on pelvic ultrasound & the risk of myosarcoma; in addition reviewed with the patient that malignancy and pre malignancy cannot be ruled out without hysterectomy for pathological evaluation ; furthermore, explained to the patient the limitation of pelvic ultrasound and endometrial biopsy in the setting. Discussed with the patient the options of treatment including expectant management versus hysterectomy; the pros and cons, risks benefits of each approach were discussed with the patient including the fact that in cases of myosarcoma, surgical treatment can lead to early diagnosis and positively affects the prognosis; after further discussion, the patient decided to proceed with expectant management. Will repeat pelvic ultrasound periodically. Instructions given to patient to call in case any of the following occurs: pressure symptoms, abnormal uterine bleeding, pelvic pain; and to schedule a six-months pelvic ultrasound (order placed) and a follow-up appointment . All questions answered, the patient verbalized understanding and agreed with the plan . Orders: Orders AMB HCG Urine Test Today Z32.02 - Encounter for test, result negative US pelvic and transvaginal 6 Months D25.9 - Leiomyoma of uterus, unspecified Pap Smear Today N95.0 - Postmenopausal bleeding HPV High risk Today N95.0 - Postmenopausal bleeding Coding Level of Care Code New Pt Level 3 (72416) Diagnoses Postmenopausal bleeding N95.0 Uterine myoma D25.9
[2025-06-10 08:43] VITALS: BP 110/78; BMI 28.2
--- OUTSIDE RECORDS SUMMARY | 2025-06-10 08:50 | XMS_ITS | Encounter Summary ---
Author Organization [employer] Address [address] [facility] 7t [place] [address] Care Team Providers Care Fish Icer Name Role Phone Kenzie Ding [facility] Primary Care Provider [phone] Reason for Visit * Reason Onset Date Comments Med Refill 12/03/2024 Encounter Details Date Type Department Care Team ([facility] st Contact Info) Description 12/03/2024 Refill [facility] [address] [place] [address] Jevon Esqueda MD [address] [place] [address] Perimenopausal symptoms Social History Tobacco Use Types [...] t he electric, gas, oil or water [employer] threatened to shut off services in your [...] documented as of this encounter Care Teams Fish Icer Relationship Specialty Start Date End Date Kenzie Ding FNP [address] [place] [phone] PCP - General Family Medicine 10/26/24 documented as of this encounter
--- OUTSIDE RECORDS SUMMARY | 2025-06-10 08:50 | XMS_ITS | Clinical Summary ---
Author Organization [employer] Address [address] [place] [address] 7t [place] [address] Care Team Providers Care International Travel Consultant Name Role Phone Kenzie Ding [facility] Primary Care Provider [phone] Allergies Active Allergy Reactions Criticality Noted Date Comments Hazelnut (Filbert) Angioedema 10/26/2024 Penicillin V Hives 08/03/2024 Medications norethindrone-e thinyl estradiol-iron (Lo Loestrin Fe) 1 MG-10 MCG / 10 MCG tabletIndicatio ns:Perimenopaus al symptoms Take 1 tablet by mouth Once per day. 90 tablet 3 5 01/03/20 26 Active triamcinolone (Kenalog) 0.1 % ointmentIndicat ions:Heat rash Apply topically 2 times daily. 30 g 5 Active diphenhydrAMINE -zinc acetate (Benadryl Extra Strength) creamIndication s:Heat rash Apply topically if needed in the morning, at noon, and at bedtime for itching. 35 g 5 04/29/20 26 Active predniSONE (Deltasone) 10 MG tabletIndicatio ns:Rash Take by oral route daily. 6 tabs (=60mg) on day 1-2; 5 tabs (=50mg) on day 3-4; 4 tabs (=40mg) on day 5-6; 3 tabs (=30mg) on day 7-8; 2 tabs (=20mg) on day 9-10; 1 tab on day 11-12; 1/2 tab on day 13-14 43 tablet 5 Active Active Problems Problem Noted Date Diagnosed Date Exercise counseling 11/01/2024 Well adult health check 11/01/2024 Dietary counseling 11/01/2024 Radha-menopausal 05/13/2022 Overview (10/23/2024): Various ailments and symptoms Encounters Date Type Department Care Team Description 05/09/2025 Telephone [facility] [address] [place] [address] Jevon Esqueda MD 05/09/2025 Telephone [facility] [address] [place] [address] Kenzie Ding FNP Call Back Request 05/04/2025 11:00 AM EDT [facility] [address] [address] Jevon Esqueda MD Rash (Primary Dx) 05/04/2025 Travel 05/02/2025 Telephone [facility] [address] [place] [address] Kenzie Ding FNP Nurse Triage 05/01/2025 Refill [facility] [address] [address] Candelario Pop CNP Heat rash 04/29/2025 3:20 PM EDT [facility] [address] [address] Krysten Gray NP Heat rash (Primary Dx) 04/29/2025 Travel from Last 3 Months Immunizations Immunization Administration Dates Next Due Influenza, seasonal, injectable, [...] Tobacco: Never Tobacco Cessation:Counseling Given: Not Answered Alcohol Use Standard Drinks/Week Comments Not Currently 0 (1 standard drink = 0.6 oz pur e alcohol) Depression Answer Date Recorded Patient Health Questionnaire-9 [...] Access Q2 Not on file 10/16/2024 Comments No Sex and Gender Information Value Date Recorded Sex Assigned at Female 08/03/2024 11:02 AM EST Legal Sex Female 1:45 PM EST Gender Identity Female 08/03/2024 11:02 AM EST Sexual Orientation Straight 08/03/2024 11 :02 AM EST Last Filed Vital Signs Vital Sign Reading Time Taken Comments Blood Pressure 130/82 05/04/2025 10:56 AM EDT Pulse 78 05/04/2025 10:56 AM EDT Temperature 36.4 C (97.5 F) 05/04/2025 10:56 AM EDT Respiratory Rate 18 05/04/2025 10:56 AM EDT Oxygen Saturation 100% 04/29/2025 2:20 PM EDT Inhaled Oxygen Concentration - - Weight 85.5 kg (188 lb 6.4 oz) 05/04/2025 10:56 AM EDT Height 170.2 cm (5' 7 ) 05/04/2025 10:56 AM EDT Body Mass Index 29.51 05/04/2025 10:56 AM EDT Plan of Treatment Health Maintenance Due Date Last Done Comments CT Colonography 1971 Colonoscopy 1971 Colorectal Cancer Screening 1971 FIT DNA/Cologuard 1971 FIT 1971 FOBT 1971 HIV Screening 1971 Sigmoidoscopy 1971 Alcohol/Substance Use Screening 1983 DTaP/Tdap/Td Vaccines (1 - Tdap) 1990 Hepatitis B Vaccines (1 of 3 - 19+ 3-dose series) 1990 Pneumococcal Vaccine: 50+ Years (1 of 1 - PCV) 2021 Zoster Vaccines (1 of 2) 2021 Depression Monitoring 04/25/2025 10/26/2024 , 10/26/2024 Influenza Vaccine (#1) 2025 08/03/2024 Disability Screening 10/23/2025 10/23/2024 Cervical Cancer Screening 10/25/2025 HPV/Cotest 10/25/2025 Pap Smear 10/25/2025 10/25/2022 SDOH Screening 10/26/2025 10/26/2024 Mammogram 01/16/2026 01/17/2024 Tobacco Screening 05/04/2026 05/04/2025 RSV Patients and Patients Aged 60 years or older (1 - 1-dose 75+ series) 2046 COVID-19 Vaccine Completed 08/03/2024 Hepatitis C Screening Completed 11/13/2024 HIB Vaccines Aged Out No longer eligi [...] patient's age to complete this topic Meningococcal B Vaccine Aged Out No l onger eligible based on patient's age to complete [...] Procedure Name Priority Date/Time Associated Diagnosis Comments HEPATITIS PANEL, GENERAL Routine 11/13/2024 1:32 PM EST Well adult health check PAP SMEAR Routine 10/25/2022 12:00 AM EST from Last 3 Months or Most Recently Relevant to Health Maintenance Results * Hepatitis A,B,C Profile (11/13/2024 1:32 PM EST) Hepatitis A IgM Nonreactive Nonreactive [facility] Comment:IgM antibodies to BREAUX V not detected; does not exclude earlyacute or recovered HAV infection. ~Hepatitis B Surface Antibody NONREACTIVE Nonreactive [facility] Comment:Nonreactive: < 8.00 mIU/mL Hepatitis B Core Antibody Nonreactive Nonreactive [facility] Hepatitis C Antibody Nonreactive Nonreactive [facility] Comment:Antibodies to HCV no t detected; does not exclude early acuteHCV infection. Hepatitis B Surface Ag Negative Negative [facility] Blood Venous blood specimen / Unknown 11/13/2024 1:32 PM EST 11/13/2024 4:05 PM EST Kenzie Ding OPERATOR SPECIALIST COMMUNICATIONS LAB BLOOD ORDERABLES Final Res ult Performing Organization Address [facility]/ZIP Co de Phone Number [facility] [address] [place] [phone] * (ABNORMAL) Pap Smear (10/25/2022 12:00 AM EST) Swab Historical Provider MD LAB CYTOLOGY ORDERABLES F inal Result Performing Organization Address City/[facility] Co de Phone Number EXTERNAL LAB from Last 3 Months or Most Recently Relevant to Health Maintenance [facility] Care Teams International Travel Consultant Relationship Specialty Start Date End Date Kenzie Ding FNP [address] [place] [phone] PCP - General Family Medicine 10/26/24
--- OUTSIDE RECORDS SUMMARY | 2025-06-10 08:50 | XMS_ITS | Encounter Summary ---
Author Organization [employer] Address [address] [facility] 7t [place] [address] Care Team Providers Care Inspector Salvage Name Role Phone Kenzie Ding [facility] Primary Care Provider [phone] Reason for Visit * Reason Onset Date Comments Med Refill 11/14/2024 Encounter Details Date Type Department Care Team ([facility] st Contact Info) Description 11/14/2024 Refill [facility] [address] [place] [address] Jevon Esqueda MD [address] [place] [address] Perimenopausal symptoms Social History Tobacco Use Types [...] t he electric, gas, oil or water [employer] threatened to shut off services in your [...] documented as of this encounter Care Teams Inspector Salvage Relationship Specialty Start Date End Date Kenzie Ding FNP [address] [place] [phone] PCP - General Family Medicine 10/26/24 documented as of this encounter
--- OUTSIDE RECORDS SUMMARY | 2025-06-10 08:50 | XMS_ITS | Encounter Summary ---
Author Organization [employer] Address [address] [facility] 7t [place] [address] Care Team Providers Care Server Service Assistant Name Role Phone Kenzie Ding [facility] Primary Care Provider [phone] Reason for Visit * Reason Onset Date Comments Med Refill 05/01/2025 Encounter Details Date Type Department Care Team (Late st Contact Info) Description 05/01/2025 Refill [facility] [address] [place] [address] Candelario Pop CNP [address] [place] [address] Heat rash Social History Tobacco Use Types Packs/Day Years Used Date Smoking Tobacco: Never Smokeless Tobacco: Never Alcohol Use Standard Drinks/Week Comments Not Currently [...] as of this encounter Visit Diagnoses Diagnosis Heat rash Prickly heat documented in this encounter Additional Health Concerns Assessment Noted Time PHQ-9 Depression Total Score: 10 025 2:23 PM EST documented as of this encounter Care Teams Server Service Assistant Relationship Specialty Start Date End Date Kenzie Ding FNP [address] [place] [phone] PCP - General Family Medicine 10/26/24 documented as of this encounter
--- OUTSIDE RECORDS SUMMARY | 2025-06-10 08:50 | XMS_ITS | Encounter Summary ---
Author Organization [employer] Address [address] [place] [address] 7 [place] [address] Care Team Providers Care Timber Treatment Plant Operator Name Role Phone Kenzie Ding SPEECH AND HEARING DIRECTOR Primary Care Provider [phone] Reason for Visit * Reason Onset Date Comments Med Refill 02/23/2025 Encounter Details Date Type Department Care Team ([facility] st Contact Info) Description 02/23/2025 Refill [facility] [address] [place] [address] Kenzie Ding FNP [address] [place] [address] Perimenopausal symptoms Social History Tobacco Use Types [...] as of this encounter Care Teams Timber Treatment Plant Operator Relationship Specialty Start Date End Date Kenzie Ding FNP [address] [place] [phone] PCP - General Family Medicine 10/26/24 documented as of this encounter
== END 2025-06-10 09:32 | disposition home or self-care (01) ==
LOC: HO.HWS 08:27
PROVIDERS: Visit Provider Obstetrics & Gynecology
DX: N95.0 Postmenopausal bleeding (principal); D25.9 Leiomyoma of uterus, unspecified; Z32.02 Encounter for pregnancy test, result negative
CPT/HCPCS: 99203

== ENCOUNTER 2025-07-12 05:57 | Day surgery (SDC) | payer MEDICAID, SELFPAY ==
--- NOTE | 2025-07-09 14:25 | HO.ANESPROP2 ---
Documented by User: Anne Marie Ramon NP 07/09/25 14:31 HPI - Anesthesia Eval Consult details Narrative: 55 yr old female for D&C Hysteroscopy,possible myomectomy,possible polypectomy PMFSH Active Problems Active Problems: All Active Problems (Updated 06/10/25 @ 08:59 by Kj Egan MD) Uterine myoma (Acute) Postmenopausal bleeding (Acute) Past Medical History Medical History Post-menopausal bleeding Family History Family History Mother Diabetes HTN (hypertension) Father Cancer of kidney Brother HTN (hypertension) Surgical History Surgical History History of surgical removal of ganglion cyst (~1984) Hx of colonoscopy Social History Social History Household Members: Significant Other Household Members Other:: partner Housing: Apartment Are you a primary pediatric acute care unit nurse to a significant other at home: No Do you presently have visiting nurse or other home services: No Alcohol intake: current Alcohol intake frequency: a few times a week 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 If so, by whom?: No Are you DNR?: No Advance Directives: No Advance Directives Information Provided: Yes Advance Directives on File: No Current occupational status: unemployed Gender identity: Female Meds Allergies Allergy/AdvReac Type Severity Reaction Status Date / Time Penicillins Allergy Intermediate Rash Verified 06/10/25 08:44 Home Medications ?Medication ?Instructions ?Recorded ?Confirmed ?Last Taken ?Type calcium carbonate 500 mg PO DAILY 06/10/25 07/09/25 Unknown History cholecalciferol (vitamin D3) 25 25 mcg PO DAILY 06/10/25 07/09/25 Unknown History mcg (1,000 unit) capsule norethindrone 1 mg-ethinyl 1 tab PO DAILY 07/10/25 07/10/25 Unknown History estradiol 10 mcg (24)-iron 10 mcg(2) tablet (Lo Loestrin Fe) Documented by User: Ayesha Negro MD 07/12/25 07:34 PMFSH Past Medical History Medical History Post-menopausal bleeding Family History Family History Mother Diabetes HTN (hypertension) Father Cancer of kidney Brother HTN (hypertension) Surgical History Surgical History History of surgical removal of ganglion cyst (~1984) Hx of colonoscopy History of Problems with Anesthesia: No Social History Social History Household Members: Significant Other Household Members Other:: partner Housing: Apartment Are you a primary pediatric acute care unit nurse to a significant other at home: No Do you presently have visiting nurse or other home services: No Alcohol intake: current Alcohol intake frequency: a few times a week 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 If so, by whom?: No Are you DNR?: No Advance Directives: No Advance Directives Information Provided: Yes Advance Directives on File: No Current occupational status: unemployed Gender identity: Female Meds Allergies Allergy/AdvReac Type Severity Reaction Status Date / Time Penicillins Allergy Intermediate Rash Verified 06/10/25 08:44 Home Medications ?Medication ?Instructions ?Recorded ?Confirmed ?Last Taken ?Type calcium carbonate 500 mg PO DAILY 06/10/25 07/09/25 Unknown History cholecalciferol (vitamin D3) 25 25 mcg PO DAILY 06/10/25 07/09/25 Unknown History mcg (1,000 unit) capsule norethindrone 1 mg-ethinyl 1 tab PO DAILY 07/10/25 07/10/25 Unknown History estradiol 10 mcg (24)-iron 10 mcg(2) tablet (Lo Loestrin Fe) Exam Airway Mallampati Class: II TM Dist: >3cm Neck ROM: Full Loose/Missing/Broken Teeth: No Heart: RRR Lungs: CTA Assessment and Plan Assessment Anesthesia Assessment: Anesthesia Plan Discussed and Chart Reviewed Final Anesthetic Review History of Problems with Anesthesia: No NPO: Yes ASA Class: I Final Preanesthetic Review: Meds/Allgs Chart Reviewed, Consent Obtained/Reviewed and Anes Risks/Benef Reviewed Patient Risk: Low Procedure Risk: Low Anesthetic Plan Anesthetic Plan: GA Disposition: Standard PACU
[2025-07-09 16:17] VITALS: BMI 28.2
[2025-07-10 11:08] VITALS: BMI 28.2
[2025-07-12 06:02] VITALS: BP 115/74; PULSE 75; RESP 20; TEMP 36.1; O2SAT 97
[2025-07-12 06:11] VITALS: BMI 28.9
[2025-07-12] MEDS: Lactated Ringers 1,000 ML 100 ML IVCONT (06:20)
--- NOTE | 2025-07-12 07:35 | MHC.SHP ---
Pre-Procedural Eval Section A - 24 Hr Update-Section A only Date of Service: 07/12/25 The patient is an INPATIENT: No Changes since office visit: No Cold of Flu in the past 2 weeks, No New Medical Problems, No Changes in Medication and No Patient answered all questions The patient has been examined within 24 hours of the surgical procedure. The History & Physical has been completed within 30 days and I have reviewed it.: Yes Section B - Complete if H&P > 30 days Chief Complaint: Postmenopausal bleeding Allergies: Allergies Allergy/AdvReac Type Severity Reaction Status Date / Time Penicillins Allergy Intermediate Rash Verified 06/10/25 08:44 Plan Diagnosis/Plan: Unchanged I have reviewed the history and physical and performed a pertinent physical examination on my patient. No changes have occurred unless specified. Time Spent With Patient Time: Total time managing care of this patient today ____ minutes.
[2025-07-12 08:12] VITALS: BP 101/61; PULSE 66; RESP 12; TEMP 36.1; O2SAT 97
--- NOTE | 2025-07-12 08:14 | PM.OP ---
Brief Operative Note Date of Service: 07/12/25 Pre-op diagnosis: Postmenopausal bleed, endocervical polyp by ultrasound Post-op diagnosis: same (Endocervical polyp) Procedure: Hysteroscopy D&C, Polypectomy Surgeon: Kj Egan MD Anesthesia: GLMA Was an Stevedore Dock used for this Procedure?: No Estimated blood loss (mL): 0 Pathology: other (Endometrial Scrapping. Polyp) Condition: stable Disposition: PACU
--- NOTE | 2025-07-12 08:15 | W.PM.OPN ---
Operative Note Operative Note Date of Service: 07/12/25 Narrative: Preop Diagnosis: Postmenopausal bleeding , endocervical polyp by US Operation: Diagnostic Hysteroscopy, Dilataion & Curettage and polypectomy Post Op Diagnosis: Endocervical Polyp QBL: Minimal Anesthesia: GLMA Surgeon: Kj Egan MD Plant Operator Helper: None Complication: None Pathology: Endometrial Scrapings, endocervix polyp Procedure: The patient was put in the dorsal lithotomy position, scrubbed, and draped in the usual manner. A sterile speculum was inserted in the patient's vagina. The anterior lip of the cervix was grasped with a single tooth tenaculum. The cervix was dilated up to 5 mm, then the scope was inserted in the patient's uterus. Inspection revealed endocervical polyp. The Myosure Reach device was used; it was introduced through the operative channel and polypectomy done with no complications. The scope was then taken out from the uterine cavity, sharp curettings was carried on with minimal to moderate amount of tissues retrieved. At the end of the procedure, all instruments were taken out of the patient uterine and vaginal cavity. The single tooth tenaculum was removed and homeostasis was assured using pressure,. The patient tolerated the procedure well and was transferred to the PACU in a stable condition.
[2025-07-12 08:17] VITALS: BP 101/63; PULSE 66; RESP 16; O2SAT 96
[2025-07-12 08:22] VITALS: BP 107/67; PULSE 62; RESP 16; O2SAT 96
[2025-07-12 08:27] VITALS: BP 118/73; PULSE 74; RESP 16; O2SAT 96
[2025-07-12 08:41] VITALS: BP 116/77; PULSE 60; RESP 16; TEMP 36.5; O2SAT 97
== END 2025-07-12 09:00 | disposition home or self-care (01) ==
PROVIDERS: PCP Nurse Practitioner Family; Visit Provider Obstetrics & Gynecology
PROC: 0UDB8ZZ Extraction of Endometrium, Via Natural or Artificial Opening Endoscopic (ICD-10-PCS; CPT 58558; principal; 2025-07-12 07:30)
DX: N95.0 Postmenopausal bleeding (principal); N84.1 Polyp of cervix uteri; D25.9 Leiomyoma of uterus, unspecified; Z88.0 Allergy status to penicillin; Z56.0 Unemployment, unspecified; Z79.899 Other long term (current) drug therapy
CPT/HCPCS: 58558; 88305; J0131; J1100; J1885; J2003; J2250; J2405; J2704; J3010

== ENCOUNTER → 2025-07-12 05:57 | Outpatient (BNV) | payer MEDICAID, SELFPAY | PROVIDERS: PCP Nurse Practitioner Family; Visit Provider Obstetrics & Gynecology | DX: N95.0 Postmenopausal bleeding (principal) | CPT/HCPCS: 58558 ==

== ENCOUNTER 2025-07-18 16:36 | Outpatient (REF) | payer MEDICAID, SELFPAY ==
--- OUTSIDE RECORDS SUMMARY | 2025-07-18 13:00 | XMS_ITS | Encounter Summary ---
Author Organization [employer] Address [address] h [address] [place] [id number] Care Team Providers Care Appeals Examiner Name Role Phone Kenzie Ding POLICY CHANGE CLERK Primary Care Provider [phone] Encounter Details Date Type Department Care Team (Late st Contact Info) Description 07/18/2025 1:00 PM EST Office Visit [facility] [address] [place], [place] [phone] Anahi Gupta DO [address] [place], [place] [phone] Acute UTI (Primary Dx) Social History Tobacco Use Types Packs/Day Years [...] Sign Reading Time Taken Comments Blood Pressure 112/78 07/18/2025 1:14 PM EST Pulse 84 07/18/2025 1:02 PM EST Temperature 36.7 C (98 F) 07/18/2025 1:02 PM EST Respiratory Rate 20 07/18/2025 1:02 PM EST Oxygen Saturation 97% 07/18/2025 1:02 PM EST Inhaled Oxygen Concentration - - Weight 84.4 kg (186 lb 2 oz) 07/18/2025 1:02 PM EST Height 172.7 cm (5' 8 ) 07/18/2025 1:02 PM EST Body Mass Index 28.3 07/18/2025 1:02 PM EST documented in this encounter Progress Notes * Anahi Gupta, - 07/18/2025 1:00 PM EST SUBJECTIVE Lauren Martinez is a 55 y.o. female who presents for Sick Visit. She presents to [place] today c/o UTI sx. She underwent hysteroscopy with D&C and polypectomy last Tuesday with Dr. Egan. She has f/u with [facility] next week. She says she woke up 2 nights ago with a sensation of needing to urinate, but she couldn't go. She says the following day she felt a little better but then started having urinary frequency and urgency. She says that she episode of incontinence this morning as she was rushing to get to the bathroom.She is having some pain at the end of urination. She says it is uncomfortable to urinate. She says there is a little bit of hematuria since she had the surgery. She doesn't have h/o UTIs. She denies any N/V. No fevers. No vaginal symptoms. History provided by: Patient chute man used: No UTI Severity: Moderate Onset quality: Sudden Duration: 2 days Timing: Constant Progression: Worsening Chronicity: New Associated symptoms: no abdominal pain, no chest pain, no cough, no diarrhea, no fever, no headaches, no nausea, no shortness of breath and no vomiting Review of Systems Constitutional: Negative for activity change, appetite change, chills, fever and unexpected weight change. Respiratory: Negative for cough and shortness of breath. Cardiovascular: Negative for chest pain, palpitations and leg swelling. Gastrointestinal: Negative for abdominal pain, diarrhea, nausea and vomiting. Genitourinary: Positive for decreased urine volume, difficulty urinating, dysuria, enuresis, frequency, hematuria and urgency. Negative for flank pain, menstrual problem and pelvic pain. Neurological: Negative for weakness and headaches. Patient Active Problem List Diagnosis Radha-menopausal Exercise counseling Well adult health check Dietary counseling Allergies Allergen Reactions Hazelnut (Filbert) Angioedema Penicillin V Hives OBJECTIVE Vitals: 07/18/25 1302 07/18/25 1314 BP: (!) 124/95 112/78 BP Location: Left arm Right arm Patient Position: Sitting Sitting BP Cuff Size: Adult Adult Pulse: 84 Resp: 20 Temp: 98 ??F (36.7 ??C) TempSrc: Oral SpO2: 97% Weight: 186 lb 2 oz (84.4 kg) Height: 5' 8 (1.727 m) Physical Exam Constitutional: General: She is not in acute distress. Appearance: Normal appearance. Cardiovascular: Rate and Rhythm: Normal rate and regular rhythm. Heart sounds: Normal heart sounds. No murmur heard. Pulmonary: Effort: Pulmonary effort is normal. Breath sounds: Normal breath sounds. No wheezing or rhonchi. Abdominal: General: Bowel sounds are normal. Palpations: Abdomen is soft. There is no mass. Tenderness: There is no abdominal tenderness. Neurological: General: No focal deficit present. Mental Status: She is alert and oriented to person, place, and time. Cranial Nerves: No cranial nerve deficit. Motor: No weakness. Gait: Gait normal. Psychiatric: Mood and Affect: Mood normal. Office Visit on 07/18/2025 Component Date Value Ref Range Status Color, UA 07/18/2025 Yellow Final Clarity, UA 07/18/2025 Clear Final Glucose, UA 07/18/2025 Negative Final Bilirubin, UA 07/18/2025 Negative Final Ketones, UA 07/18/2025 Negative Final Spec Grav, UA 07/18/2025 1.015 Final Blood, UA 07/18/2025 Positive (A) Negative, None Detected Final Moderate pH, UA 07/18/2025 6.0 Final Protein, UA 07/18/2025 Negative Final Urobilinogen, UA 07/18/2025 0.2 Final Leukocytes, UA 07/18/2025 Trace Negative, Rare, Trace Final small Nitrite, UA 07/18/2025 Negative Negative, None Detected Final QC Media Lot # 07/18/2025 [id number] Final Lot# Expiration Date 07/18/[id number] Final Assessment/Plan Diagnoses and all orders for this visit: Acute UTI -treat empirically with bactrim -send Ucx for sensitivities -advised contact [facility] if sx do not resolve, she agrees with plans --Follow-up with PCP as scheduled or sooner prn-- Current Outpatient Medications: diphenhydrAMINE-zinc acetate (Benadryl Extra Strength) cream, Apply topically if needed in the morning, at noon, and at bedtime for itching., Disp: 35 g, Rfl: 0 norethindrone-ethinyl estradiol-iron (Lo Loestrin Fe) 1 MG-10 MCG / 10 MCG tablet, Take 1 tablet bymouth Once per day., Disp: 90 tablet, Rfl: 3 predniSONE (Deltasone) 10 MG tablet, Take by oral route daily. 6 tabs (=60mg) on day 1-2; 5 tabs (=50mg) on day 3-4; 4 tabs (=40mg) on day 5-6; 3 tabs (=30mg) on day 7-8; 2 tabs (=20mg) on day 9-10; 1 tab on day 11-12; 1/2 tab on day 13-14, Disp: 43 tablet, Rfl: 0 sulfamethoxazole-trimethoprim (Bactrim DS) 800-160 MG tablet, Take 1 tablet by mouth 2 times daily for 3 days., Disp: 6 tablet, Rfl: 0 triamcinolone (Kenalog) 0.1 % ointment, Apply topically 2 times daily., Disp: 30 g, Rfl: 0 Scribe Attestation: Jacobo Peterson, am serving as a scribe to document services personally performed by Anahi Reinoso, based on the patient's response to questions by provider and provider's statements to me. 07/18/25 1:49 PM Physicians Attestation: Anahi Peterson DO, have reviewed the information by the scribe, Jacobo Oden, for accuracy and agree with its content. documented in this encounter Plan of Treatment Scheduled Orders Name Type Priority Associated Diagnoses Orde r Schedule Culture, Urine, Routine Microbiology Routine Acute UTI Expected: 07/18/2025 (Approximate), Expires: 07/18/2026 documented as of this encounter Procedures Procedure Name Priority Date/Time Associated Diagnosis Comments POCT URINALYSIS DIPSTICK Routine 07/18/2025 1:04 PM EST Acute UTI documented in this encounter Results * (ABNORMAL) POCT Urinalysis (07/18/2025 1:04 PM EST) Color, UA Yellow Clarity, UA Clear Glucose, UA Negative Bilirubin, UA Negative Ketones, UA Negative Spec Grav, UA 1.015 Blood, UA Positive(A) Negative, None Detected Comment:Moderate pH, UA 6.0 Protein, UA Negative Urobilinogen, UA 0.2 Leukocytes, UA Trace Negative, Rare, Trace Comment:small Nitrite, UA Negative Negative, None Detected QC Media Lot # [id number] Lot# Expiration Date ,[id number] Urine (Urine, Random) 07/18/2025 1:04 PM EST Anahi Gupta DO POINT OF CARE TEST ENTER/STEPHEN T ORDERABLES Final Result documented in this encounter Visit Diagnoses Diagnosis Acute UTI- Primary Urinary tract infection, site not specified documented in this encounter Additional Health Concerns Assessment Noted Time PHQ-9 Depression Total Score: 10 025 2:23 PM EST documented as of this encounter Care Teams Appeals Examiner Relationship Specialty Start Date End Date Kenzie Ding FNP [address] [place] [id number] PCP - General Family Medicine 10/26/24 documented as of this encounter
--- OUTSIDE RECORDS SUMMARY | 2025-07-18 18:49 | XMS_ITS | Encounter Summary ---
Author Organization [employer] Address [address] [facility] 7t [place] [address] Care Team Providers Care Air Pollution Analyst Name Role Phone Kenzie Ding [facility] Primary Care Provider [phone] Encounter Details Date Type Department Care Team (Latest Contact Info) Description 07/18/2025 Travel Social History Tobacco Use Types Packs/Day [...] Diagnoses Not on filedocumented in this encounter Additional Health Concerns Assessment Noted Time PHQ-9 Depression Total Score: 10 025 2:23 PM EST documented as of this encounter Care Teams Air Pollution Analyst Relationship Specialty Start Date End Date Kenzie Ding FNP [address] [place] [phone] PCP - General Family Medicine 10/26/24 documented as of this encounter
--- OUTSIDE RECORDS SUMMARY | 2025-07-18 18:49 | XMS_ITS | Encounter Summary ---
Author Organization [employer] Address [address] [facility] [address]t h [address] [place] [id number] Care Team Providers Care Chief Creative Officer Name Role Phone Kenzie Ding [facility] Primary Care Provider [phone] Reason for Visit * Reason Onset Date Comments Med Refill 12/03/2024 Encounter Details Date Type Department Care Team (Late st Contact Info) Description 12/03/2024 Refill [facility] [address] [place] [address] Jevon Esqueda MD [address] [place] [address] Perimenopausal symptoms Social History Tobacco Use Types [...] documented as of this encounter Care Teams Chief Creative Officer Relationship Specialty Start Date End Date Kenzie Ding FNP [address] [place] [id number] PCP - General Family Medicine 10/26/24 documented as of this encounter
--- OUTSIDE RECORDS SUMMARY | 2025-07-18 18:49 | XMS_ITS | Encounter Summary ---
Author Organization [employer] Address [address] [facility] 7t [place] [address] Care Team Providers Care Datastage Architect Name Role Phone Kenzie Ding REGULATORY COMPLIANCE DIRECTOR Primary Care Provider [phone] Reason for Visit * Reason Onset Date Comments Med Refill 02/23/2025 Encounter Details Date Type Department Care Team ([facility] st Contact Info) Description 02/23/2025 Refill [facility] [address] [place] [address] Kenzie Ding FNP [address] [place] [address] Perimenopausal symptoms Social History Tobacco Use Types [...] documented as of this encounter Care Teams Datastage Architect Relationship Specialty Start Date End Date Kenzie Ding FNP [address] [place] [phone] PCP - General Family Medicine 10/26/24 documented as of this encounter
--- OUTSIDE RECORDS SUMMARY | 2025-07-18 18:49 | XMS_ITS | Encounter Summary ---
Author Organization [employer] Address [address] [facility] 7t [place] [address] Care Team Providers Care Developmental Electronics Assembler Name Role Phone Kenzie Ding [facility] Primary Care Provider [phone] Reason for Visit * Reason Onset Date Comments Med Refill 05/01/2025 Encounter Details Date Type Department Care Team (Late st Contact Info) Description 05/01/2025 Refill [facility] [address] [place] [address] Candelario Pop CNP [address] [place] [address] Heat rash Social History Tobacco Use Types [...] documented as of this encounter Care Teams Developmental Electronics Assembler Relationship Specialty Start Date End Date Kenzie Ding FNP [address] [place] [phone] PCP - General Family Medicine 10/26/24 documented as of this encounter
--- OUTSIDE RECORDS SUMMARY | 2025-07-18 18:49 | XMS_ITS | Encounter Summary ---
Author Organization [employer] Address [address] [facility] 7t h Floor [place] [phone] Care Team Providers Care Planning Director Name Role Phone Kenzie Ding [facility] Primary Care Provider [phone] Reason for Visit * Reason Onset Date Comments Med Refill 11/14/2024 Encounter Details Date Type Department Care Team (Late st Contact Info) Description 11/14/2024 Refill [facility] [address] [place] [address] Jevon Esqueda MD [address] [place] [address] Perimenopausal symptoms Social History Tobacco Use Types [...] documented as of this encounter Care Teams Planning Director Relationship Specialty Start Date End Date Kenzie Ding FNP [address] [place] [phone] PCP - General Family Medicine 10/26/24 documented as of this encounter
--- OUTSIDE RECORDS SUMMARY | 2025-07-18 18:49 | XMS_ITS | Clinical Summary ---
Author Organization [employer] Address [address] [facility] 7t [place] [address] Care Team Providers Care Supervisor Cigar Processing Name Role Phone Kenzie Ding [facility] Primary Care Provider [phone] Allergies Active Allergy Reactions Criticality Noted Date [...] on day 13-14 43 tablet 5 Active sulfamethoxazol e-trimethoprim (Bactrim DS) 800-160 MG tablet Take 1 tablet by mouth 2 times daily for 3 days. 6 tablet 11/06/202 5 07/21/20 25 Active Active Problems Problem Noted Date Diagnosed Date Exercise counseling 11/01/2024 Well adult health check 11/01/2024 Dietary counseling 11/01/2024 Radha-menopausal 05/13/2022 Overview (10/23/2024): Various ailments and symptoms Encounters Date Type Department Care Team Description 07/18/2025 1:00 PM EST Office Visit [facility] WALK-IN [address] [address] Anahi Gupta DO Acute UTI (Primary Dx) 07/18/2025 Travel 05/09/2025 [facility] [address] [address] Jevon Esqueda MD 05/09/2025 Telephone [facility] MEDICINE [address] [place] [address] Kenzie Ding FNP Call Back Request 05/04/2025 11:00 AM EDT [facility] [address] [address] Jevon Esqueda MD Rash (Primary Dx) 05/04/2025 Travel 05/02/2025 Telephone [facility] MEDICINE [address] [place] [address] Kenzie Ding FNP Nurse Triage 05/01/2025 [facility] [address] [address] Candelario Pop CNP Heat rash 04/29/2025 3:20 PM EDT [facility] [address] [address] Krysten Gray NP Heat rash (Primary Dx) [...] your housing situation today? I have jin ratna 10/16/[address] you li [...] Mass Index 28.3 07/18/2025 1:02 PM EST Plan of Treatment Health Maintenance [...] 10/26/2025 10/26/2024 Mammogram 01/16/2026 01/17/2024 Tobacco Screening 07/18/2026 07/18/2025 RSV Patients and Patients Aged 60 years [...] Routine 07/18/2025 1:04 PM EST Acute UTI HEMATOXYLIN AND EOSIN STAIN Routine 07/12/2025 7:51 AM EDT Abnormal uterine bleeding (AUB) HEPATITIS PANEL, GENERAL Routine 11/13/2024 1:32 PM EST Well adult health check PAP SMEAR Routine 10/25/2022 12:00 AM EST from Last 3 Months or Most Recently Relevant to Health Maintenance Results * (ABNORMAL) POCT Urinalysis (07/18/2025 1:04 [...] Media Lot # [id number] Lot# Expiration Date [id number] Urine (Urine, Random) 07/18/2025 1:04 PM EST Anahi Gupta DO POINT OF CARE TEST ENTER/STEPHEN T ORDERABLES Final Result * Hematoxylin and Eosin Stain (07/12/2025 7:51 AM EDT) 07/12/2025 7:51 AM EDT 07/12/2025 8:25 AM EDT Narrative [facility] - 07/15/2025 2:33 PM EST ----- ------- Name: Lauren Martinez Age/Sex: 55/F : 1970 Unit#: [id number] Attend Dr: Kj Egan MD Re07/12/25 Status: [facility] Location: [facility] Disch: ----- ------- SPEC : [id number] RECD: 07/12/25 STATUS: KRISTI ISRAEL NUM: [id number] DAMION: 07/12/25 [facility] DR: Kj Egan MD ENTERED: 07/12/25 SP TYPE: Surgical OTHR DR: Kenzie Ding COMMUNITY CASE MANAGER ORDERED: HE Stain/4, Gross Micro L4/2 Diagnosis A. Endocervix, polypectomy: Benign endocervical polyp. B. Endometrium, curettage: Polypoid fragments of endometrium suggestive of polyp; fragments of inactive endometrium with stromal breakdown and tubal metaplasia; negative for atypia, hyperplasia or malignancy. Clinical History Pre-Op Dx: Post menopausal bleeding Post-Op Dx: Endocervical polyp Microscopic Description Microscopic sections reviewed. Material Received A. Endocervical polyp [place]. [facility] [place] Description A. Received in formalin is a 2.5 x 2.0 x 0 point 4 cm aggregate of cuellar soft tissue and mucus, totally submitted in A1. B. Received in formalin is a 4.0 x 2.5 x 0.4 cm aggregate of cuellar-red soft tissue admixed with clotted blood and mucus, totally submitted in B1-B2. (RJD) IHC S/NG Disclaimer NOTE: Unless otherwise stated, all tissue is formalin-fixed and paraffin-embedded. Some or all of the immunohistochemical tests reported herein may have been developed and their performance characteristics determined by [facility]. They have not been cleared or approved by the U.S. Food and Drug Administration (FDA). However, the FDA has determined that such clearance or approval is not necessary. This laboratory is certified under the Clinical Laboratory Improvement Amendments of 1988 (CLIA) as qualified to perform high complexity clinical laboratory testing. CONTINUED ON NEXT PAGE ----- ------- Name: Lauren Martinez Age/Sex: 55/F : 1970 Unit#: [id number] Attend Dr: Kj Egan MD Re07/12/25 Status: [facility] Location: [facility] Disch: ----- ------- SPEC : [id number] RECD: 07/12/25 STATUS: KRISTI ISRAEL NUM: [id number] DAMION: 07/12/25 [facility] [address]: Kj Egan MD ENTERED: 07/12/25 SP TYPE: Surgical OTHR DR: Kenzie Ding ORDERED: HE Stain/4, Gross Micro L4/2 Copies To: Kenzie Ding [address] [address] Kj Egan MD [facility] [address] [place] [address] [address] [place] [phone] ----- ------- Signed (signature on file) Nikki Moser MD 07/15/25 1433 ----- ------- END OF REPORT us Generic External Data Provider LAB BLOOD ORDERAB LES Final Result Performing Organization Address City/State/[facility] Co de Phone Number [facility] [address] [place] [phone] * Hepatitis A,B,C Profile (11/13/2024 1:32 PM EST) Hepatitis A IgM Nonreactive Nonreactive [facility] Comment:IgM antibodies to BREAUX V not detected; does not exclude earlyacute or recovered HAV infection. ~Hepatitis B Surface Antibody NONREACTIVE Nonreactive [facility] Comment:Nonreactive: < 8.00 mIU/mL Hepatitis B Core Antibody Nonreactive Nonreactive [facility] Hepatitis C Antibody Nonreactive Nonreactive [facility] Comment:Antibodies to HCV no t detected; does not exclude early acuteHCV infection. Hepatitis B Surface Ag Negative Negative [facility] Blood Venous blood specimen / Unknown 11/13/2024 1:32 PM EST 11/13/2024 4:05 PM EST Kenzie DEJESUSP LAB BLOOD ORDERABLES Final Res ult [facility] [address] [place] [address] [phone] * (ABNORMAL) Pap Smear (10/25/2022 12:00 AM EST) Swab us Historical Provider MD LAB CYTOLOGY ORDERABLES F inal Result Performing Organization Address City/[facility] Co de Phone Number EXTERNAL LAB from Last 3 Months or Most Recently Relevant to Health Maintenance Insurance [employer] Care Teams Supervisor Cigar Processing Relationship Specialty Start Date End Date Kenzie Ding FNP [address] [place] [phone] PCP - General Family Medicine 10/26/24
== END 2025-07-18 16:37 | disposition home or self-care (01) ==
LOC: HO.HHCLNP 16:36
PROVIDERS: Visit Provider Family Medicine
DX: N39.0 Urinary tract infection, site not specified (principal)
CPT/HCPCS: 87086

== ENCOUNTER 2025-07-24 14:16 | Outpatient (AMB) | payer MEDICAID, SELFPAY ==
--- NOTE | 2025-07-24 14:37 | A.OFFVIS_ITS ---
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 The pathology showed the following: A. Endocervix, polypectomy: Benign endocervical polyp. B. Endometrium, curettage: Polypoid fragments of endometrium suggestive of po lyp; fragments of inactive endometrium with stromal breakdown and tubal metaplasia; negative for atypia, hyperplasia or malignancy PFSH Medical History Post-menopausal bleeding Surgical History History of surgical removal of ganglion cyst (~1984) Hx of colonoscopy Family History Mother Diabetes HTN (hypertension) Father Cancer of kidney Brother HTN (hypertension) Social History Household Members: Significant Other Household Members Other:: partner Housing: Apartment Are you a primary care center manager to a significant other at home: No Do you presently have visiting nurse or other home services: No 75 years or older and lives alone: No Alcohol intake: current Alcohol intake frequency: does not drink Alcohol type: other Patient Tobacco Use Status: Never used Tobacco e-Cigarette/Vaping Use: Never Used Current occupational status: unemployed Gender identity: Female Female Reproductive History Menstrual Age of Menarche: 14 Review of Systems Const All systems reviewed & are unremarkable except as noted in HPI and below Reports as per HPI and Reports no additional complaints GI Reports no additional complaints Reports no additional complaints Assessment & Plan Assessment & Plan (1) Postmenopausal bleeding: Comment: Endocervical polyp status post hysteroscopic polypectomy benign pathology Code(s): N95.0 - Postmenopausal bleeding Category: Medical Plan: Discussed with the patient the results of the pathology and the intraoperative finding endometrial polyp. Discussed with the patient the sensitivity, specificity, positive and negative predictive value, of endometrial biopsy in detecting endometrial pathology including but not limited to endometrial hyperplasia, cancer and other pathology; instructed the patient to call in case vaginal bleeding recurs, the next step will be to proceed with further endometrial sampling evaluation to rule out endometrial pathology. All questions answered and the patient verbalized understanding and agreed with the plan. Coding Level of Care Code Est Pt Level 3 (60547) Diagnoses Postmenopausal bleeding N95.0
[2025-07-24 14:39] VITALS: BP 110/72; BMI 28.0
--- OUTSIDE RECORDS SUMMARY | 2025-07-24 17:39 | XMS_ITS | Encounter Summary ---
Author Organization [employer] Address 75 [facility] 7t h Floor [place] [id number] Care Team Providers Care Automatic Splicing Machine Operator Name Role Phone Kenzie Ding [facility] Primary Care Provider [phone] Reason for Visit * Reason Onset Date Comments Med Refill 11/14/2024 Encounter Details Date Type Department Care Team (Late st Contact Info) Description 11/14/2024 Refill [facility] [address] [place] [address] Jevon Esqueda MD [address] [place] [address] Perimenopausal symptoms Social History Tobacco Use Types [...] documented as of this encounter Care Teams Automatic Splicing Machine Operator Relationship Specialty Start Date End Date Kenzie Ding FNP [address] [place] [phone] PCP - General Family Medicine 10/26/24 documented as of this encounter
--- OUTSIDE RECORDS SUMMARY | 2025-07-24 17:39 | XMS_ITS | Encounter Summary ---
Author Organization [employer] Address 75 [facility] 7t h Floor [place] [phone] Care Team Providers Care Batch Blender Name Role Phone Kenzie Ding [facility] Primary Care Provider [phone] Reason for Visit * Reason Onset Date Comments Med Refill 12/03/2024 Encounter Details Date Type Department Care Team (Late st Contact Info) Description 12/03/2024 Refill [facility] [address] [place] [address] Jevon Esqueda MD [address] [place] [address] Perimenopausal symptoms Social History Tobacco Use Types [...] documented as of this encounter Care Teams Batch Blender Relationship Specialty Start Date End Date Kenzie Ding FNP [address] [place] [phone] PCP - General Family Medicine 10/26/24 documented as of this encounter
--- OUTSIDE RECORDS SUMMARY | 2025-07-24 17:39 | XMS_ITS | Encounter Summary ---
Author Organization [employer] Address 75 [facility] 7t [place] [address] Care Team Providers Care Title I Math Tutor Name Role Phone Kenzie Ding [facility] Primary Care Provider [phone] Reason for Visit * Reason Onset Date Comments Med Refill 05/01/2025 Encounter Details Date Type Department Care Team (Late st Contact Info) Description 05/01/2025 Refill [facility] [address] [place] [address] Candelario Pop CNP [address] [place] [address] Heat rash Social History Tobacco Use Types [...] documented as of this encounter Care Teams Title I Math Tutor Relationship Specialty Start Date End Date Kenzie Ding FNP [address] [place] [address] PCP - General Family Medicine 10/26/24 documented as of this encounter
--- OUTSIDE RECORDS SUMMARY | 2025-07-24 17:39 | XMS_ITS | Encounter Summary ---
Author Organization [employer] Address 75 [facility] 7t [place] [address] Care Team Providers Care Brand Recorder Name Role Phone Kenzie Ding [employer]MICAL PLANT WORKER Primary Care Provider [phone] Reason for Visit * Reason Onset Date Comments Med Refill 02/23/2025 Encounter Details Date Type Department Care Team ([facility] st Contact Info) Description 02/23/2025 Refill [facility] [address] [place] [address] Kenzie Ding FNP [address] [place] [address] Perimenopausal symptoms Social History Tobacco Use Types [...] documented as of this encounter Care Teams Brand Recorder Relationship Specialty Start Date End Date Kenzie Ding FNP [address] [place] [phone] PCP - General Family Medicine 10/26/24 documented as of this encounter
--- OUTSIDE RECORDS SUMMARY | 2025-07-24 17:40 | XMS_ITS | Clinical Summary ---
Author Organization [employer] Address 75 [facility] 7t [place] [address] Care Team Providers Care Solution Designer Name Role Phone Kenzie Ding [facility] Primary Care Provider [phone] Allergies Active Allergy Reactions Criticality Noted Date [...] 6 tablet 11/06/202 5 07/21/20 25 Active Problems Problem Noted Date Diagnosed Date Exercise counseling 11/01/2024 Well adult health check 11/01/2024 Dietary counseling 11/01/2024 Radha-menopausal 05/13/2022 Overview (10/23/2024): Various ailments and symptoms Encounters Date Type Department Care Team Description 07/18/2025 1:00 PM EST Office Visit [facility] WALK-IN [address] [address] Anahi Gupta DO Acute UTI (Primary Dx) 07/18/2025 Travel 05/09/2025 [facility] [address] [address] Jevon Esqueda MD 05/09/2025 Telephone [facility] MEDICINE [address] [place] [address] Kenzie Ding FNP Call Back Request 05/04/2025 11:00 AM EDT [facility] [address] [address] Jevon Esqueda MD Rash (Primary Dx) 05/04/2025 Travel 05/02/2025 Telephone [facility] MEDICINE [address] [place] [address] Kenzie Ding FNP Nurse Triage 05/01/2025 [facility] [address] [address] Candelario Pop CNP Heat rash 04/29/2025 3:20 PM EDT [facility] [address] [address] Krysten Gray NP Heat rash (Primary Dx) [...] 2021 Depression Monitoring 04/25/2025 10/26/2024 , 10/26/2024 COVID-19 Vaccine (2 - 2024-2 6 season) 2025 08/03/2024 Influenza Vaccine (#1) 2025 08/03/2024 Disability Screening 10/23/2025 10/23/2024 Cervical Cancer Screening 10/25/2025 HPV/Cotest 10/25/2025 Pap Smear 10/25/2025 10/25/2022 SDOH Screening 10/26/2025 10/26/2024 Mammogram 01/16/2026 01/17/2024 Tobacco Screening 07/18/2026 07/18/2025 RSV Patients and Patients Aged 60 years or older (1 - 1-dose 75+ series) 2046 Hepatitis C Screening Completed 11/13/2024 HIB Vaccines [...] Procedure Name Priority Date/Time Associated Diagnosis Comments CULTURE, URINE, ROUTINE Routine 07/18/2025 1:09 PM EST Acute UTI POCT URINALYSIS DIPSTICK Routine 07/18/2025 1:04 PM EST Acute UTI HEMATOXYLIN AND EOSIN STAIN Routine 07/12/2025 7:51 AM EDT Abnormal uterine bleeding (AUB) HEPATITIS PANEL, GENERAL Routine 11/13/2024 1:32 PM EST Well adult health check PAP SMEAR Routine 10/25/2022 12:00 AM EST from Last 3 Months or Most Recently Relevant to Health Maintenance Results * Culture, Urine, Routine (07/18/2025 1:09 PM EST) Urine Urine specimen obtained by clean catch procedure / Unknown 07/18/2025 1:09 PM EST 07/18/2025 4:37 PM EST Comment:UACC Narrative [facility] - 07/20/2025 1:01 PM EST Urine Culture Report Result Urine Culture < 10,000 cfu/ml Specimen Source: Urine clean catch us Anahi Gupta DO LAB MICROBIOLOGY - GENERAL O RDERABLES Final Result [facility] [address] [place] [phone] * (ABNORMAL) POCT Urinalysis (07/18/2025 1:04 PM [...] Media Lot # [id number] Lot# Expiration Date [id number] Urine (Urine, Random) 07/18/2025 1:04 PM EST Anahi Gupta DO POINT OF CARE TEST ENTER/STEPHEN T ORDERABLES Final Result * Hematoxylin and Eosin Stain (07/12/2025 7:51 AM EDT) 07/12/2025 7:51 AM EDT 07/12/2025 8:25 AM EDT Narrative [facility] - 07/15/2025 2:33 PM EST ----- ------- Name: Lauren Martinez Age/Sex: 55/F : 1970 Unit#: [id number] Attend Dr: Kj Egan MD Re07/12/25 Status: [facility] Location: [facility] Disch: ----- ------- SPEC : [id number] RECD: 07/12/25 STATUS: KRISTI ISRAEL NUM: [id number] DAMION: 07/12/[address] [facility] [address]: Kj Egan MD ENTERED: 07/12/25 SP TYPE: Surgical OTHR DR: Okhipo,Kenzie RETAIL DEPARTMENT SUPERVISOR ORDERED: HE Stain/4, Gross Micro L4/2 Diagnosis A. Endocervix, polypectomy: Benign endocervical polyp. B. Endometrium, curettage: Polypoid fragments of endometrium suggestive of polyp; fragments of inactive endometrium with stromal breakdown and tubal metaplasia; negative for atypia, hyperplasia or malignancy. Clinical History Pre-Op Dx: Post menopausal bleeding Post-Op Dx: Endocervical polyp Microscopic Description Microscopic sections reviewed. Material Received A. Endocervical polyp B. [facility] Gross Description A. Received in formalin is a 2.5 x 2.0 x 0 point 4 cm aggregate of cuellar soft tissue and mucus, totally submitted in A1. B. Received in formalin is a 4.0 x 2.5 x 0.4 cm aggregate of cuellar-red soft tissue admixed with clotted blood and mucus, totally submitted in B1-B2. (CHANDU) IHC S/NG Disclaimer NOTE: Unless otherwise stated, all tissue is formalin-fixed and paraffin-embedded. Some or all of the immunohistochemical tests reported herein may have been developed and their performance characteristics determined by [facility]. They have not been cleared or [...] Lauren Martinez Age/Sex: 55/F : 1970 Unit#: [id number] Attend Dr: Kj Egan MD Re07/12/25 Status: [facility] Location: [facility] Disch: ----- ------- SPEC : [id number] RECD: 07/12/25 STATUS: KRISTI ISRAEL NUM: [id number] DAMION: 07/12/[address] [facility] [address]: Kj Egan MD ENTERED: 07/12/25 SP TYPE: Surgical OTHR DR: Kenzie Ding ORDERED: HE Stain/4, Gross Micro L4/2 Copies To: Kenzie Ding [address] [address] Kj Egan MD [facility] [address] [place] [address] ----- ------- Signed (signature on file) Nikki Moser MD 07/15/25 1433 ----- ------- END OF REPORT us Generic External Data Provider LAB BLOOD ORDERAB LES Final Result [facility] [address] [place] [phone] * Hepatitis A,B,C Profile (11/13/2024 1:32 PM EST) Hepatitis A IgM Nonreactive Nonreactive [facility] Comment:IgM antibodies to BREAUX V not detected; does not exclude earlyacute or recovered HAV infection. ~Hepatitis B Surface Antibody NONREACTIVE Nonreactive [facility] Comment:Nonreactive: < 8.00 mIU/mL Hepatitis B Core Antibody Nonreactive Nonreactive [facility] Hepatitis C Antibody Nonreactive Nonreactive [facility] Comment:Antibodies to HCV no t detected; does not exclude early acuteHCV infection. Hepatitis B Surface Ag Negative Negative [facility] Blood Venous blood specimen / Unknown 11/13/2024 1:32 PM EST 11/13/2024 4:05 PM EST Kenzie Ding RETAIL DEPARTMENT SUPERVISOR LAB BLOOD ORDERABLES Final Res ult Performing Organization Address [facility]/ZIP Co de Phone Number [facility] [address] [place] [phone] * (ABNORMAL) Pap Smear (10/25/2022 12:00 AM EST) Swab Historical Provider MD LAB CYTOLOGY ORDERABLES F inal Result Performing Organization Address City/[facility] Co de Phone Number EXTERNAL LAB from Last 3 Months or Most Recently Relevant to Health Maintenance Insurance [employer] Care Teams Solution Designer Relationship Specialty Start Date End Date Kenzie Ding FNP [address] [place] [phone] PCP - General Family Medicine 10/26/24
== END 2025-07-24 14:51 | disposition home or self-care (01) ==
LOC: HO.HWS 14:17
PROVIDERS: PCP Nurse Practitioner Family; Visit Provider Obstetrics & Gynecology
DX: N95.0 Postmenopausal bleeding (principal)
CPT/HCPCS: 99213

== ENCOUNTER → 2025-07-24 14:16 | Outpatient (BNVA) | payer MEDICAID, SELFPAY | PROVIDERS: PCP Nurse Practitioner Family; Visit Provider Obstetrics & Gynecology | DX: Z71.2 Person consulting for explanation of examination or test findings (principal); N95.0 Postmenopausal bleeding | CPT/HCPCS: 99212 ==